=== PATIENT | male | born 1980 | race Caucasian/White ===

== ENCOUNTER 2017-11-10 16:06 | Emergency (ER) | payer SELFPAY ==
[2017-11-10 16:11] VITALS: BP 115/68; PULSE 62; RESP 16; TEMP 36.3; O2SAT 98
[2017-11-10] MEDS: Amoxicillin 875/Clav. 125 TAB PO (16:49)
--- NOTE | 2017-11-10 16:59 | ED.GENADUL ---
Disposition Clinical Impression: Infected dental caries Disposition: HOME Condition: Stable Instructions: Dental Caries (ED) Additional Instructions: Please take your antibiotic until gone and call the dentist on the list provided that offer sliding scale. This will offer you definitive care of your dental fractures and infection. Prescriptions: Amoxicillin/Potassium Clav [Augmentin 875-125 Tablet] 1 tab PO Q12H PRN #13 tablet PRN Reason: Medical Decision Making - Medical Decision Making Significant old dental fracture down to the pulp involving tooth #20 and 19 with surrounding erythema to the gumline. Concern for infected dental caries but there is no sign of pocket of abscess or fluctuance, no Raul's angina, no peritonsillar or retropharyngeal abscess, no signs of systemic illness and patient is afebrile and otherwise well-appearing. Given the patient was just placed upon penicillin recently with resolution but not returned patient placed upon Augmentin. Patient was given a list of dental providers offer sliding scale as he states he has no insurance. Patient stated only mild pain so he was encouraged to continue his ibuprofen and I do not feel dental block is needed at this time. After discussion of diagnosis and plan of care with patient patient agreed and stated no further needs, questions, or concerns at this time. History of Present Illness - General Chief complaint: DentalOral Stated complaint: INFECTED TOOTH Time Seen by Provider: 11/10/17 16:19 Source: patient, RN notes reviewed Mode of arrival: ambulatory Limitations: no limitations - History of Present Illness Initial comments: Patient reports history of broken teeth that have become infected in the past. He states that he was seen here in the emergency department a couple weeks ago and placed upon penicillin which helped his symptoms at that time. Then over the last 2 days he has noticed some slight increase in discomfort which is been mild but some swelling to his jaw. He is concern for return of infection. He states that he took his penicillin as prescribed and finished all the pills. Patient denies any difficulty breathing, swallowing, sore throat, fever or chills. Onset/Timin -: days(s) Location: mouth, left Severity scale (1-10): 2 Quality: aching Consistency: constant Improves with: none Worsens with: none Treatments Prior to Arrival: NSAID - Related Data Ibuprofen 400 mg PO PRN PRN 08/07/17 Amoxicillin/Potassium Clav [Augmentin 875-125 Tablet] 1 tab PO Q12H PRN #13 tablet 11/10/17 Allergies Allergy/AdvReac Type Severity Reaction Status Date / Time No Known Allergies Allergy Unverified 11/10/17 16:14 Review of Systems Constitutional: denies: chills, fever, malaise ENT: dental pain. denies: ear pain, throat pain, congestion Respiratory: denies: cough, shortness of breath, stridor, wheezing Cardiovascular: denies: chest pain Neurological: denies: headache Comment: All other systems reviewed and negative Past Medical History - Past Medical History Medical history: denies: diabetes dental decay, recurrent/chronic dental pain Surgical history: no surgical history Family history: no significant family history - Social History Smoking status: current everyday smoker Alcohol use: rarely Drug use: none General Exam - General Limitations: no limitations General appearance: alert, in no apparent distress - Eye Eye exam: Present: normal apperance - ENT ENT exam: Present: mucous membranes moist - Expanded ENT Exam No standard instances Mouth exam: Present: tongue normal. Absent: drooling, trismus, muffled voice, tongue elevation Teeth exam: Present: dental caries, fractured tooth # (19-20), gingival enlargement (Surrounding tooth #19 and 20 with no fluctuance noted) Throat exam: normal inspection. negative: tonsillar erythema, tonsillomegaly, tonsillar exudate, L peritonsillar mass - Neck Neck exam: Present: normal inspection, full ROM. Absent: tenderness, lymphadenopathy - Respiratory Respiratory exam: Absent: respiratory distress, stridor - Neurological Exam Neurological exam: Present: alert, oriented X3. Absent: altered - Skin Skin exam: Present: warm, dry, normal color Course Vital Signs - 24 hr 11/10/17 16:11 Temperature 36.3 C L Pulse 62 Respiratory 16 Rate Blood Pressure 115/68 Pulse Oximetry 98
== END 2017-11-10 17:05 | disposition home or self-care (01) ==
PROVIDERS: Emergency Provider Physician Assistant
DX: K02.9 Dental caries, unspecified (principal); K04.7 Periapical abscess without sinus
CPT/HCPCS: 99283

== ENCOUNTER 2018-09-10 23:46 | Emergency (ER) | payer SELFPAY ==
[2018-09-10 23:52] VITALS: BP 120/77; PULSE 89; RESP 17; TEMP 37.1; O2SAT 98
--- NOTE | 2018-09-10 23:55 | DI.CT_ITS ---
SYMPTOM/DIAGNOSIS: SOB PE CHEST CT: CT angiography was performed with multi slice acquisition and multi planar and 3D reconstruction. CT angiography of the chest was performed with intravenous infusion of 76 cc's of Omnipaque 350. Images obtained through the upper abdomen are unremarkable. There is no evidence of pulmonary embolic disease. There is no evidence of thoracic aortic dissection or aneurysm. No mediastinal or hilar adenopathy seen. Tracheobronchial tree appears intact. No pleural effusion or pulmonary consolidation. CONCLUSION: Normal CTA chest. No evidence of acute pulmonary embolus.
[2018-09-10 23:56] VITALS: RESP 18
--- NOTE | 2018-09-10 23:59 | ED.GENADUL_ITS ---
Discharge Plan Disposition Patient Disposition: HOME Condition: Good Discharge Details Chief Complaint: Chest Pain Clinical Impression: Shortness of breath, Light-headedness Primary Care Provider: None,None ED Provider: Will Lange Home Meds and New Rx's Prescriptions: No Action No Known Home Meds RF: 0 Discharge Instructions Instructions: Lightheadedness (ED) Additional Instructions: I placed you on our follow up list to get set up with a primary care provider if you have severe chest pain or worsening shortness of breath or new symptoms such as severe abdominal pain return to the emergency department for reevaluation Medical Decision Making 38 yo male who denies chronic medical problems though does not see a pcp, smoker, denies drinking or drug use, comes in with chief complaint of feeling lightheaded and short of breath. 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 Denies chest pain or pressure and never had loc. HE denies recent travel, fevers or cough. He appears anxious, has clear lungs on exam. His ecg is unremarkable, heart score is 1, will send troponin. His wells score is moderate given PE is just as likely diagnosis so will obtain cta. NO tearing back pain so doubt dissection. Is having lightheadedness with normal tele so doubt arrythmia. No neuro symptoms and NIH of 0 here with normal neuro exam so doubt cva or other neurological process. labs unremarkable and he remains hd stable. AWaiting vrad report but if negative will d/c and have him f/u with pcp within a week for shortness of breath. Do not feel additional troponin indicated as he now states he has had symptoms over 4 hours and low heart score Differential Diagnosis anxiety, pe, anemia, electrolyte abnormality Imaging Data Radiologic Study: Attestation: I personally reviewed and interpreted this imaging study as follows: Imaging: CT Scan My impression: no acute findings Radiologist's impression: IMPRESSION: No acute pulmonary embolus Lab Data Lab results reviewed: Yes I reviewed the patient's lab results. ECG Data Attestation: I personally reviewed and interpreted this ECG (s) as follows: Prior ECG tracings: not available for review Interpretation: sinus rhyth, rate of 79, pr 140, no acute st t wave ischemic findings HPI General Mode of arrival: ambulatory . Date/Time Provider Initiated Documentation: 09/10/18 23:46 . Limitations to Documentation: no limitations . Information obtained by: patient . History of Present Illness 38 year old M presents to the emergency department with the chief complaint of shortness of breath, described as moderate, Patient started experiencing this hour(s) (1) and it has been constant. No relieving factors improve symptom(s), No exacerbating factors reported . Patient notes no other symptoms.. Patient did receive the following treatments prior to arrival, none Related Data Home Medications Medication Instructions Recorded Confirmed Unknown [No Known Home Meds] 09/10/18 09/10/18 Allergies Allergy/AdvReac Type Severity Reaction Status Date / Time No Known Allergies Allergy Unverified 09/10/18 23:58 Review of Systems Review of Systems All systems reviewed & are unremarkable except as noted in HPI and below Constitutional Denies chills, Denies fever(s) and Denies weakness Cardiovascular Denies chest pain Respiratory Denies cough Gastrointestinal Denies abdominal pain, Denies nausea and Denies vomiting Musculoskeletal Denies joint swelling Integumentary/Breasts Denies rash Neurologic Denies weakness Psychiatric Denies depression PFSH Social History Smoking/Tobacco Use Status: Current every day Alcohol Intake: former Drug use: Occasionally Substance use type: marijuana Do you feel safe at home: Yes Do you feel safe in your relationship?: Yes Exam Const General: anxious Orientation: alert HENMT Head: normal to inspection Ears: external ears normal General nose exam: external nose normal Mouth: moist mucous membranes Eyes General: appearance normal, both eyes and all related structures Neck Neck: normal visual inspection Resp Effort & Inspection: normal respiratory effort and able to speak in complete sentences Cardio Rate: regular rate Skin General skin exam: no rashes or lesions noted Neuro General: alert and oriented x3 Extrem General: normal to inspection Psych Mental Status: mental status grossly normal
[2018-09-11] MEDS: LORazepam 2 MG/ML VIAL 0.5 MG IVP (00:06)
[2018-09-11] MEDS: Normal Saline 1,000 ML 1000 ML IV (00:07)
[2018-09-11] MEDS: Omnipaque 350 MG/ML 100 ML BTL IJ (00:15)
[2018-09-11 00:25] LABS: Abs Immature Grans 0.02 k/cumm (0.0-0.09); Absolute Basophil Count 0.03 k/cumm (0.0-0.2); Absolute Eosinophil Count 0.43 k/cumm (0.0-0.7); Absolute Lymphocyte Count 2.27 k/cumm (1.2-3.4); Absolute Monocyte Count 0.56 k/cumm (0.11-0.7); Absolute Neutrophil Count 6.53 k/cumm (1.2-6.7); Basophils % 0.3; Eosinophils % 4.4; HCT 47.7 % (40.0-50.0); HGB 16.3 g/dL (13.5-17.5); Immature Grans % 0.2; Lymphocytes % 23.1; Mean Corp. HGB Concentration 34.2 g/dL (32.0-36.0); Mean Corpuscular Hemoglobin 30.8 pg (27.0-33.0); Mean Corpuscular Volume 90.2 fL (80-95); Mean Platelet Volume 9.6 fL (8.0-11.0); Monocytes % 5.7; Neutrophils % 66.3; Platelet Count 212 x1000/uL (130-400); RBC 5.29 m/cumm (4.50-6.00); RBC Distribution Width 13.1 % (11.8-14.1); White Blood Cell Count 9.84 k/cumm (4.4-10.8)
[2018-09-11 00:40] LABS: INR 0.9 (0.9-1.1); Prothrombin Time 9.4 sec (9.3-11.0)
[2018-09-11 00:48] LABS: ALT 48 U/L (12-78); AST 19 U/L (15-37); Albumin 4.1 g/dL (3.4-5.0); Alkaline Phosphatase 85 U/L (46-116); Anion Gap 10.8 mmol/L (3-11); BUN 15 mg/dL (7-18); Bilirubin, Total 0.4 mg/dL (0.2-1.0); CO2 26.2 mmol/L (21.0-32.0); CREATININE 0.96 mg/dL (0.70-1.30); Calcium 9.6 mg/dL (8.5-10.1); Chloride 104 mmol/L (98-107); Glucose 112 mg/dL (70-100); Magnesium 1.9 mg/dL (1.8-2.4); NT-proBNP 19 pg/mL; Potassium 3.5 mmol/L (3.5-5.1); Sodium 141 mmol/L (136-145); Total Protein 7.6 g/dL (6.4-8.2); Troponin I < 0.02 ng/mL (0.00-0.06)
--- NOTE | 2018-09-11 01:33 | DI.VRAD_ITS ---
EXAM: CT Angiography Chest With Contrast EXAM DATE/TIME: 09/10/2018 11:53 PM CLINICAL HISTORY: 38 years old, male; Signs and symptoms; Shortness of breath and other: Tightness; Patient HX: SOB and tightness in chest TECHNIQUE: Imaging protocol: Axial computed tomographic angiography images of the chest with intravenous contrast using CT angiography protocol. Coronal and sagittal reformatted images were created and reviewed. 3D rendering: MIP reconstructed images were created and reviewed. Radiation optimization: All CT scans at this facility use at least one of these dose optimization techniques: automated exposure control; mA and/or kV adjustment per patient size (includes targeted exams where dose is matched to clinical indication); or iterative reconstruction. Contrast material: OMNIPAQUE 350; Contrast volume: 76 ml; Contrast route: IV RAC; COMPARISON: No relevant prior studies available. FINDINGS: Pulmonary arteries: No acute pulmonary embolus. Aorta: No aortic aneurysm. No aortic dissection. Lungs: Bibasilar subsegmental dependent atelectasis. No acute findings. Pleural space: Normal. No pneumothorax. No pleural effusion. Heart: No cardiomegaly. No pericardial effusion. Lymph nodes: Unremarkable. No enlarged lymph nodes. Bones/joints: Unremarkable. No acute fracture. Soft tissues: Unremarkable. IMPRESSION: No acute pulmonary embolus. Dictated and Authenticated by: Quinton Obregon MD. Ordering:CARL Solis MD
[2018-09-11 01:46] VITALS: BP 118/78; PULSE 62; RESP 16; O2SAT 98
[2018-09-11] MEDS: Normal Saline Flush 10 ML SYR IVP (01:49)
--- NOTE | 2018-09-12 08:20 | CMPROGNOTE_ITS ---
Care Management Progress Note 09/12-Dr. Lange requested assistance with establishing PCP and f/u in one week for SOB. ([employer] corrections sergeant). Referral faxed to [facility] this am.
--- NOTE | 2018-09-12 08:20 | PDOC.ERCMPRO ---
Care Management Progress Note 09/12-Dr. Lange requested assistance with establishing PCP and f/u in one week for SOB. ([employer] home sales service professional). Referral faxed to [facility] this am.
== END 2018-09-11 01:45 | disposition home or self-care (01) ==
LOC: ER 09-11 01:49
PROVIDERS: Emergency Provider Emergency Medicine
DX: R06.02 Shortness of breath (principal); R42 Dizziness and giddiness
CPT/HCPCS: 36415; 71275; 80053; 93005; 96360; 99285; 83735; 83880; 84484; 85025; 85610; 85730; 93010; J2060; J3490

== ENCOUNTER 2021-06-27 20:30 | Emergency (ER) | payer SELFPAY ==
[2021-06-27 20:34] VITALS: BP 125/96; PULSE 73; RESP 16; TEMP 36.3; O2SAT 100
--- NOTE | 2021-06-27 20:40 | ED.GENADUL_ITS ---
Discharge Plan Disposition Patient Disposition: HOME Condition: Good Discharge Details Clinical Impression: Pain, dental, Acute pulpitis Primary Care Provider: None,None ED Provider: Nestor De Jesus Home Meds and New Rx's Prescriptions: New amoxicillin-pot clavulanate 875-125 mg tablet 1 tab PO BID Qty: 20 0RF Discharge Instructions Instructions: Toothache (ED) Additional Instructions: Please take 800 mg of ibuprofen every 6 hours and 1000 mg of Tylenol every 6 hours to help with the inflammation and pain. These are the maximum doses. Please take the antibiotic as directed to help with the infection in your tooth. Please use the dental list that we have provided to contact the dentist for prompt follow-up and evaluation for tooth removal. If you notice any worsening of your symptoms, or any new symptoms such as difficulty swallowing, difficulty breathing, vomiting, diarrhea, fever, chills, shortness of breath, chest pain, numbness, weakness, or fainting , please return immediately to the emergency department for reevaluation. Please follow up with your primary care provider as soon as possible for reassessment and reevaluation. As always, it was a pleasure participating in your medical care today. Medical Decision Making 41-year-old male who presents today for dental pain. Patient states that for the last 2 to 3 days he has had pain in his upper and lower left posterior molars. He denies fever or chills. He admits the pain but no difficulty swallowing or controlling his secretions. He has not seen a dentist for quite some time. He denies any other complaints at this time. No other modifying factors. Physical exam demonstrates poor dentition, chronic infection, but no evidence of periapical abscess or Ludewig's angina. Vital signs are stable. Patient has refused dental block at this time. We will give IM Toradol, and recommend Tylenol and Motrin for home. Will give prescription of Augmentin, and the first doses here. Will give dental sheet for contact of local dentist. Discussed red flags which to return. I have extensively reviewed the treatment plan and discharge instructions with the patient. I have addressed all patient concerns at this time. The patient was made aware of what symptoms to monitor for that would warrant a return to the emergency department. Discussed the plan with the patient, they demonstrate verbal understanding and agreement with our assessment and plan at this time. The documentation in this chart was dictated using [employer] dictation software. Please excuse any dictation errors. HPI General Date/Time Provider Initiated Documentation: 06/27/21 20:31 . HPI Narrative: 41-year-old male who presents today for dental pain. Patient states that for the last 2 to 3 days he has had pain in his upper and lower left posterior molars. He denies fever or chills. He admits the pain but no difficulty swallowing or controlling his secretions. He has not seen a dentist for quite some time. He denies any other complaints at this time. No other modifying factors. Related Data Home Medications Medication Instructions Recorded Confirmed amoxicillin 875 mg-potassium 1 tab PO BID #20 tab 06/27/21 clavulanate 125 mg tablet Previous Rx's Medication Instructions Recorded amoxicillin 875 mg-potassium 1 tab PO BID #20 tab 06/27/21 clavulanate 125 mg tablet Allergies Allergy/AdvReac Type Severity Reaction Status Date / Time bee venom protein (honey bee) AdvReac Intermediate dizziness Unverified 06/27/21 20:42 General YOLANDA: 3 Review of Systems All systems reviewed & are unremarkable except as noted in HPI and below PFSH All Active Problems Pain, dental (Acute) Acute pulpitis (Acute) Social History Smoking/Tobacco Use Status: Current every day Smoking risk assessment performed?: Yes Alcohol Intake: former Drug use: Occasionally Substance use type: marijuana Do you feel safe at home: Yes Do you feel safe in your relationship?: Yes Exam Narrative Exam Narrative: 1.Const: Well-nourished, Well-developed, appearing stated age 2.Eyes: PERRL, no conjunctival injection, and symmetrical lids. 3.ENT: Atraumatic external nose and ears. Moist MM. Neck: Symmetric, trachea midline, No thyromegaly. Poor dentition throughout, broken and diseased teeth in the upper and lower left posterior molars. No evidence of periapical abscess, swelling, mass or Ludewig's angina. 4.CVS: +S1/S2, No murmurs or gallops. Peripheral pulses 2+ and equal in all extremities. Brisk capillary refill in all extremities. 5.RESP: Unlabored respiratory effort. Clear to auscultation bilaterally. No wheezes rales or rhonchi 6.GI: Soft, Nontender/Nondistended, No hepatosplenomegaly. No guarding or rebound. 7.MSK: Normocephalic/Atraumatic, Extremities w/o deformity or ttp No cyanosis or clubbing, Normal movement of all extremities 8.Skin: Warm, Dry. No rashes or lesions. 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 Sensation grossly intact, no focal neurologic deficits. 10.Psych: (AAO) x3. Appropriate mood and affect
[2021-06-27] MEDS: Amox. 875/Clav. 125, 2 TABS/BTL 1 TAB PO (20:46)
[2021-06-27] MEDS: Ketorolac 30 MG/ML VIAL IM (20:47)
== END 2021-06-27 21:09 | disposition home or self-care (01) ==
PROVIDERS: Emergency Provider Student in an Organized Health Care Education/Training Program
DX: K08.89 Other specified disorders of teeth and supporting structures (principal); K04.01 Reversible pulpitis
CPT/HCPCS: 96372; 99284; 99283; J1885

== ENCOUNTER 2021-10-14 22:01 | Emergency (ER) | payer SELFPAY ==
[2021-10-14 22:09] VITALS: BP 142/86; PULSE 82; RESP 14; TEMP 37.1; O2SAT 100
--- NOTE | 2021-10-14 22:19 | ED.GENADUL_ITS ---
Discharge Plan Disposition Patient Disposition: HOME Condition: Stable Discharge Details Clinical Impression: Pain, dental Primary Care Provider: None,None ED Provider: Will Lange Home Meds and New Rx's Prescriptions: New amoxicillin-pot clavulanate 875-125 mg tablet 1 tab PO BID Qty: 14 0RF Discontinued amoxicillin-pot clavulanate 875-125 mg tablet 1 tab PO BID Qty: 20 0RF Discharge Instructions Instructions: Toothache (ED) Additional Instructions: Follow up with a dentist as soon as you are able to if you feel more ill, have fevers or difficulty swallowing liquids return to the emergency department you can take 800mg ibuprofen every 8 hours as needed Medical Decision Making 41 yo male comes in with complaints of left upper posterior molar pain for several days. Denies fevers or chills, no difficulty breathing or swallowing. HAs had multiple dental issues in the past last being in June where he was seen in the ED and hasn't followup with dentist. He arrives stable and appears well breathing and swallowing normally. He has numerous eroded teeth and pain with percussion to the left upper posterior molar with no visible abscess. normal posterior pharynx and midline uvula, no submandibular swelling and no restricted neck movements, no findings to suggest ludwigs. Will place on augmentin and discussed this will likely keep happening unless he sees a dentist. Return precautions given Differential Diagnosis Differential Diagnosis: pulpitis, caries, abscess HPI General Mode of arrival: ambulatory . Date/Time Provider Initiated Documentation: 10/14/21 22:13 . Limitations to Documentation: no limitations . Information obtained by: patient . History of Present Illness 41 year old M presents to the emergency department with the chief complaint of dental pain, described as moderate, Quality is described as aching, Patient started experiencing this day(s) (3) and it has been constant. No relieving factors improve symptom(s), No exacerbating factors reported . Patient notes no other symptoms.. Patient did receive the following treatments prior to arrival, none Related Data Home Medications Medication Instructions Recorded Confirmed amoxicillin 875 mg-potassium 1 tab PO BID #14 tabs 10/14/21 clavulanate 125 mg tablet Previous Rx's Medication Instructions Recorded amoxicillin 875 mg-potassium 1 tab PO BID #14 tabs 10/14/21 clavulanate 125 mg tablet Allergies Allergy/AdvReac Type Severity Reaction Status Date / Time bee venom protein (honey bee) AdvReac Intermediate dizziness Unverified 10/14/21 22:12 General Stated Complaint: DentalOral YOLANDA: 4 Review of Systems All systems reviewed & are unremarkable except as noted in HPI and below Constitutional Constitutional: Denies chills, Denies fever(s) and Denies weakness ENT Ears, Nose, Mouth, and Throat: Denies change in voice Cardiovascular Cardiovascular: Denies chest pain and Denies dyspnea Respiratory Respiratory: Denies cough and Denies dyspnea Gastrointestinal Gastrointestinal: Denies abdominal pain, Denies nausea and Denies vomiting Integumentary/Breasts Skin/Breast: Denies rash Neurologic Neurologic: Denies weakness PFSH All Active Problems (Updated 10/14/21 @ 22:20 by Will Lange MD) Pain, dental (Acute) Social History Smoking/Tobacco Use Status: Current every day Smoking risk assessment performed?: Yes Alcohol Intake: former Drug use: Occasionally Substance use type: marijuana Do you feel safe at home: Yes Do you feel safe in your relationship?: Yes Exam Const General: no acute distress Orientation: alert HENMT Head: normal to inspection Ears: external ears normal General nose exam: external nose normal Mouth: moist mucous membranes Eyes General: appearance normal, both eyes and all related structures Neck Neck: normal visual inspection Resp Effort & Inspection: normal respiratory effort and able to speak in complete sentences Cardio Rate: regular rate Skin General skin exam: no rashes or lesions noted Neuro General: patient alert and patient oriented x3 Extrem General: normal to inspection Psych Mental Status: mental status grossly normal Course Vital Signs Vital signs: Vital Signs Temperature 37.1 C 10/14/21 22:09 Pulse 82 10/14/21 22:09 Respiratory Rate 14 10/14/21 22:09 Blood Pressure 142/86 H 10/14/21 22:09 Pulse Oximetry 100 10/14/21 22:09 Temperature 37.1 C 10/14/21 22:09 Temperature Source Skin 10/14/21 22:09 Pulse 82 10/14/21 22:09 Respiratory Rate 14 10/14/21 22:09 Respiratory Effort Non-Labored 10/14/21 22:13 Blood Pressure 142/86 H 10/14/21 22:09 Blood Pressure Position Sitting 10/14/21 22:09 Pulse Oximetry 100 10/14/21 22:09 Oxygen Delivery Method Room Air 10/14/21 22:09 Oxygen Flow Rate 0 10/14/21 22:09 Pain Level 5 10/14/21 22:13
[2021-10-14 22:30] VITALS: BP 142/86; PULSE 82; RESP 14; TEMP 37.1; O2SAT 100
[2021-10-14] MEDS: Amoxicillin 875/Clav. 125 TAB PO (22:30)
== END 2021-10-14 22:36 | disposition home or self-care (01) ==
PROVIDERS: Emergency Provider Emergency Medicine
DX: K08.89 Other specified disorders of teeth and supporting structures (principal)
CPT/HCPCS: 99283

== ENCOUNTER 2022-09-18 06:04 | Emergency (ER) | payer SELFPAY ==
[2022-09-18 06:07] VITALS: BP 138/87; PULSE 78; RESP 16; TEMP 36.8; O2SAT 98
--- NOTE | 2022-09-18 06:13 | ED.GENADUL_ITS ---
Discharge Plan Disposition Patient Disposition: Home Condition: Good Discharge Details Clinical Impression: Dental infection Primary Care Provider: None,None ED Provider: Nestor De Jesus Home Meds and New Rx's Prescriptions: New amoxicillin-pot clavulanate 875-125 mg tablet 1 tab PO BID Qty: 20 0RF Discharge Instructions Instructions: Dental Abscess (ED) Additional Instructions: Please take 800 mg of ibuprofen every 6 hours and 1000 mg of Tylenol every 6 hours to help with the inflammation and pain. These are the maximum doses. Please take the antibiotic as directed to help with the infection in your tooth. Please use the dental list that we have provided to contact the dentist for prompt follow-up and evaluation for tooth removal. If you notice any worsening of your symptoms, or any new symptoms such as difficulty swallowing, difficulty breathing, vomiting, diarrhea, fever, chills, shortness of breath, chest pain, numbness, weakness, or fainting , please return immediately to the emergency department for reevaluation. Please follow up with your primary care provider as soon as possible for reassessment and reevaluation. As always, it was a pleasure participating in your medical care today. Medical Decision Making This is a 42-year-old male with a past medical history of dental caries who presents for left upper posterior dental pain. Patient had his wisdom tooth removed years ago but there is always a small fragment that was left. It has now been bothering him for the last 2 weeks. He denies fever or chills. He has taken NSAIDs with only minimal improvement. He does see [facility] and will be following up with them. He denies any difficulty swallowing or drinking. No other complaints at this time. Exam demonstrates poor dentition throughout, and a small area of decayed teeth in the posterior left upper aspect where the patient's pain is. No evidence of periapical abscess or Ludewig's angina. Patient has refused dental block. Will recommend NSAIDs. We will give Augmentin for treatment. Discussed red flags for which to return. I have extensively reviewed the treatment plan and discharge instructions with the patient. I have addressed all patient concerns at this time. The patient was made aware of what symptoms to monitor for that would warrant a return to the emergency department. Discussed the plan with the patient, they demonstrate verbal understanding and agreement with our assessment and plan at this time. The documentation in this chart was dictated using [employer] dictation software. Please excuse any dictation errors. HPI General Date/Time Provider Initiated Documentation: 09/18/22 06:07 . HPI Narrative: This is a 42-year-old male with a past medical history of dental caries who presents for left upper posterior dental pain. Patient had his wisdom tooth removed years ago but there is always a small fragment that was left. It has now been bothering him for the last 2 weeks. He denies fever or chills. He has taken NSAIDs with only minimal improvement. He does see [facility] and will be following up with them. He denies any difficulty swallowing or drinking. No other complaints at this time. Related Data Home Medications Medication Instructions Recorded Confirmed amoxicillin 875 mg-potassium 1 tab PO BID #20 tabs 09/18/22 clavulanate 125 mg tablet Previous Rx's Medication Instructions Recorded amoxicillin 875 mg-potassium 1 tab PO BID #20 tabs 09/18/22 clavulanate 125 mg tablet Allergies Allergy/AdvReac Type Severity Reaction Status Date / Time bee venom protein (honey bee) AdvReac Intermediate dizziness Unverified 09/18/22 06:11 General Stated Complaint: DentalOral YOLANDA: 4 Review of Systems All systems reviewed & are unremarkable except as noted in HPI and below PFSH All Active Problems Dental infection (Acute) Social History Smoking/Tobacco Use Status: Current every day Smoking risk assessment performed?: Yes Alcohol Intake: former Drug use: Occasionally Substance use type: marijuana Do you feel safe at home: Yes Do you feel safe in your relationship?: Yes Exam Narrative Exam Narrative: 1.Const: Well-nourished, Well-developed, appearing stated age 2.Eyes: PERRL, no conjunctival injection, and symmetrical lids. 3.ENT: Atraumatic external nose and ears. Moist MM. Neck: Symmetric, trachea midline, No thyromegaly. Notable poor dentition throughout. Small area of decayed teeth in the posterior left upper aspect. No periapical abscess. No evidence of Ludewig's angina. 4.CVS: +S1/S2, No murmurs or gallops. Peripheral pulses 2+ and equal in all extremities. Brisk capillary refill in all extremities. 5.RESP: Unlabored respiratory effort. Clear to auscultation bilaterally. No wheezes rales or rhonchi 6.GI: Soft, Nontender/Nondistended, No hepatosplenomegaly. No guarding or rebound. 7.MSK: Normocephalic/Atraumatic, Extremities w/o deformity or ttp No cyanosis or clubbing, Normal movement of all extremities 8.Skin: Warm, Dry. No rashes or lesions. 9.Neuro: insole buffer II-XII grossly intact. Sensation grossly intact, no focal neurologic deficits. 10.Psych: (AAO) x3. Appropriate mood and affect Course Vital Signs Vital signs: Vital Signs Temperature 36.8 C 09/18/22 06:07 Pulse 78 09/18/22 06:07 Respiratory Rate 16 09/18/22 06:07 Blood Pressure 138/87 09/18/22 06:07 Pulse Oximetry 98 09/18/22 06:07 Temperature 36.8 C 09/18/22 06:07 Temperature Source Temporal Artery Scan 09/18/22 06:07 Pulse 78 09/18/22 06:07 Respiratory Rate 16 09/18/22 06:07 Respiratory Effort Normal 09/18/22 06:07 Blood Pressure 138/87 09/18/22 06:07 Blood Pressure Position Sitting 09/18/22 06:07 Pulse Oximetry 98 09/18/22 06:07 Oxygen Delivery Method Room Air 09/18/22 06:07 Oxygen Flow Rate 0 09/18/22 06:07 Pain Level 5 09/18/22 06:07
[2022-09-18] MEDS: Amox. 875/Clav. 125, 2 TABS/BTL 1 TAB PO (06:19)
== END 2022-09-18 06:19 | disposition home or self-care (01) ==
PROVIDERS: Emergency Provider Student in an Organized Health Care Education/Training Program
DX: K08.89 Other specified disorders of teeth and supporting structures (principal)
CPT/HCPCS: 99283; 99284

== ENCOUNTER 2023-05-07 05:50 | Emergency (ER) | payer SELFPAY ==
[2023-05-07 05:54] VITALS: BP 156/90; PULSE 83; RESP 19; TEMP 36.8; O2SAT 98
--- NOTE | 2023-05-07 05:54 | W.ED.GENAD ---
HPI General Mode of arrival: ambulatory. Date/Time Provider Initiated Documentation: 05/07/23 05:54. Limitations to Documentation: no limitations. Information obtained by: patient. HPI Narrative: . Patient is a 43-year-old male who presents with left lower jaw pain radiating down his neck. He cannot recall the last time he saw dentist. He has had his wisdom teeth removed. He does note he has a cavity in several of his teeth but does not have health insurance and tells me he cannot afford to see a dentist. He has been seen in the emergency department before for this pain. The pain is constant 3 out of 10 in severity characterized as throbbing. He denies any foul discharge in his mouth. He denies any fevers or chills. He denies any change in his voice. He denies any intraoral swelling. He denies any shortness of breath or fever. He is a smoker and has been. At a local supermarket but does not have dental insurance. The pain is aggravated by chewing. He has no history of immune compromised Related Data Home Medications Medication Instructions Recorded Confirmed penicillin V potassium 500 mg 500 mg PO QID #40 tabs 05/07/23 tablet Previous Rx's Medication Instructions Recorded penicillin V potassium 500 mg 500 mg PO QID #40 tabs 05/07/23 tablet Allergies Allergy/AdvReac Type Severity Reaction Status Date / Time bee venom protein (honey bee) AdvReac Intermediate dizziness Unverified 05/07/23 05:56 General Stated Complaint: DentalOral YOLANDA: 4 Review of Systems Narrative: see hpi Exam Narrative Exam Narrative: The patient is a well-developed well-nourished male in no acute distress. He is mildly hypertensive with a blood pressure of 156/90. He does appear older than his stated age and smells of tobacco. He is not tachycardic tachypneic or febrile. His room air O2 sat is normal at 98%. His skin is warm and dry normal for ethnicity. HEENT exam normocephalic atraumatic pupils are equal round react light and accommodation extraocular muscles are intact. There is no obvious facial swelling he has normal phonation. His oropharynx reveals diffuse dental disease and gingivitis. Tooth #19 has a large cavity and teeth numbers 20 and 21 have been eroded down to the gumline. There is no evidence of buccal cellulitis. There is no swelling under the tongue or evidence of Kellee's angina. There is no fluctuance or drainable abscess. He is handling secretions and has normal phonation. His neck reveals shotty submandibular adenopathy. There is no swelling of the left side of his neck. He has full range of motion of his neck. His neurologic exam is grossly normal cranial nerves II through XII appear intact he has normal speech and gait. Course The patient was advised to at foods that contain probiotics such as kombucha or [place] yogurt while on antibiotics. Alternatively they were advised to ask their pharmacist for an [id number]-[id number] probiotic to take while taking antibiotics. The patient/family/caregiver voiced agreement and understanding of the discharge instructions and plan for outpatient follow-up. There were advised to return to the Emergency Department for any new or worrisome symptoms or concerns. Medical Decision Making This is a 43-year-old smoker who is not. But does not have insurance and cannot recall the last time he saw dentist. Who presents with left lower jaw pain and obvious caries but no fluctuant abscess, buccal cellulitis or evidence of Raul's angina. He has an intact immune system. There is a smoker in the is evidence of tobacco stains on his teeth. His airway is patent. He is not febrile or toxic. My plan is to discharge him with penicillin 500 mg every 6 hours. I will advise him to buy a probiotic and to rinse with dilute hydrogen peroxide and warm Water. I advised him to see a dentist and return for any difficulty breathing talking or swallowing or any new or worrisome symptoms. Differential Diagnosis Differential Diagnosis: Dental pain, dental caries, Medical Records Medical records reviewed: Yes I reviewed the patient's medical records. Quality:[facility] Health Related Social Needs: No Data to Display Health related social needs details: No health insurance. The patient is employed. PFSH All Active Problems Dental caries (Acute) Dental caries on smooth surface penetrating into pulp (Acute) Tobacco dependence (Acute) Social History Smoking/Tobacco Use Status: Current every day Smoking risk assessment performed?: Yes Alcohol Intake: former Drug use: Occasionally Substance use type: marijuana Do you feel safe at home: Yes Do you feel safe in your relationship?: Yes Discharge Plan Disposition Patient Disposition: Home Discharge Details Clinical Impression: Tobacco dependence, Dental caries on smooth surface penetrating into pulp, Dental caries Primary Care Provider: [facility],Local ED Provider: Stacy Cancino Home Meds and New Rx's Prescriptions: New penicillin V potassium 500 mg tablet 500 mg PO QID Qty: 40 0RF Discharge Instructions Instructions: Dental Caries (ED) Additional Instructions: 1. Alternate 1000mg of acetaminophen (Tylenol) every 3 hours with 400-600mg of ibuprofen (Motrin/Advil) as needed for pain or fever. Do not take more than 4000mg in 24 hours. Do not take acetaminophen if you have a history of liver disease. Do not take ibuprofen if you have a history of gastrointestinal bleeding or a history of kidney disease. 2. Start penicillin 500 mg every 6 hours for 10 days. While on antibiotics, we recommend you take probiotics. Probiotics help to replace the good bacteria that are killed when taking antibiotics and may decrease the gastrointestinal side effects, such as diarrhea, that sometimes occur while on antibiotics. Probiotics can be found in some foods such as kombucha and [place] yogurt. Alternatively, you may ask your pharmacist to recommend an kuwa-qea-wgmmiui probiotic to take along with your prescription for antibiotics. 3. Follow-up with a dentist of your choice. Return here for any new or worrisome symptoms such as increasing pain, difficulty breathing, talking or swallowing, change in voice or any concerns. Rinse with dilute hydrogen peroxide and warm tap water and 1-1 dilution. Discharge Data Discharge Physician: Stacy Cancino
[2023-05-07] MEDS: Penicillin V POTASSIUM 500 MG TAB PO (06:20)
== END 2023-05-07 06:21 | disposition home or self-care (01) ==
PROVIDERS: Emergency Provider Emergency Medicine Emergency Medical Services
DX: K08.89 Other specified disorders of teeth and supporting structures (principal); Z72.0 Tobacco use; K02.9 Dental caries, unspecified
CPT/HCPCS: 99282; 99283

== ENCOUNTER 2023-12-05 23:58 | Emergency (ER) | payer SELFPAY ==
[2023-12-06 00:03] VITALS: BP 133/105; PULSE 93; RESP 18; O2SAT 97
--- NOTE | 2023-12-06 00:15 | ED.GENADUL_ITS ---
Discharge Plan Disposition Patient Disposition: Home Condition: Good Discharge Details Clinical Impression: Finger laceration ED Provider: Ariel Haro Discharge Instructions Instructions: Laceration Repair With Stitches ED Additional Instructions: You were seen for a laceration to your finger that with irrigated and cleaned, closed with stitches. Keep the wound clean and dry, covered for the next 3 to 4 days. You may shower but do not soak your right hand. Sutures should be removed in 7 to 10 days. Return to ED for any signs of infection which will include increasing pain, redness, swelling, drainage. HPI General Mode of arrival: ambulatory . Date/Time Provider Initiated Documentation: 12/06/23 00:15 . Limitations to Documentation: no limitations . Information obtained by: patient and RN notes reviewed . HPI Narrative: Patient is a [id number] male presents to ED with laceration to his right index finger. Patient tripped and fell while carrying a glass jar. The jar broke and he sustained a laceration to the pad of his index finger. He is not sure whether he has glass still in his finger or not. He denies any injury elsewhere. Bleeding has been difficult to control. Denies any numbness to the finger and is able to flex and extend without difficulty. Patient reports tetanus is up-to-date within the last 5 years. Related Data Allergies Allergy/AdvReac Type Severity Reaction Status Date / Time bee venom protein (honey bee) AdvReac Intermediate dizziness Unverified 12/06/23 00:07 General Stated Complaint: Laceration YOLANDA: 3 Review of Systems Narrative: Per HPI Exam Narrative Exam Narrative: Const: WDWN male in NAD. VS per triage. HEENT: NC/AT. Normal facial exam. Neck: Supple. Trachea midline. Lungs: Normal respiratory effort. Neuro: A+O x 3. Normal speech, mentation, gait. Cranial nerves II - XII grossly intact. No gross motor or sensory deficit. Ext: No C/C/E. Right hand with flap laceration involving the pad and extending proximal. Sensation is intact. Full flexion against resistance without pain or tenderness. Course Vital Signs Vital signs: Vital Signs Pulse 93 H 12/06/23 00:03 Respiratory Rate 18 12/06/23 00:03 Blood Pressure 133/105 H 12/06/23 00:03 Pulse Oximetry 97 12/06/23 00:03 Pulse 93 H 12/06/23 00:03 Respiratory Rate 18 12/06/23 00:03 Blood Pressure 133/105 H 12/06/23 00:03 Blood Pressure Position Sitting 12/06/23 00:03 Pulse Oximetry 97 12/06/23 00:03 Oxygen Delivery Method Room Air 12/06/23 00:03 Oxygen Flow Rate 0 12/06/23 00:03 Procedures Laceration Laceration 1: Site: hand Side (If applicable): right Size (cm): 1 Description: flap Depth: simple, single layer Local anesthetic: Lidocaine 1% Amount of anesthesia used (mL): 0.5 Pre-repair: wound explored and irrigated extensively Skin layer closed with: nylon Size (cm): 5-0 Number of sutures: 4 Technique: simple, interrupted Nerve Block Nerve Block 1: Time out performed: Yes Local Anesthetic: Lidocaine 1% Amount of anesthesia used (mL): 3 Side: right Nerve Blocks: digital Procedure Successful: Yes Patient Tolerated Procedure: well Complications: none Medical Decision Making Patient presenting to ED with right index finger laceration sustained from a piece of glass. Patient reports pulling the glass out. Digital block was performed. Finger tourniquet applied and wound irrigated out. No glass seen or felt. Tourniquet removed. Small amount of local introduced into the laceration area due to some continued pain despite digital block. Wound further irrigated out. Closed with 5-0 sutures with good approximation of skin. Discussed wound care and return precautions. Sutures out in 7 to 10 days. [facility] All Active Problems (Updated 12/06/23 @ 01:24 by Ariel aHro MD) Finger laceration (Acute) Social History Smoking/Tobacco Use Status: Current every day Smoking risk assessment performed?: Yes Alcohol Intake: former Drug use: Occasionally Substance use type: marijuana Do you feel safe at home: Yes Do you feel safe in your relationship?: Yes
[2023-12-06] MEDS: Lidocaine 1% Multi-Dose 50 ML VIAL ×2 (00:40→01:29)
== END 2023-12-06 01:30 | disposition home or self-care (01) ==
LOC: ER 12-06 01:43
PROVIDERS: Emergency Provider Emergency Medicine
DX: S61.210A Laceration without foreign body of right index finger without damage to nail, initial encounter (principal); F17.200 Nicotine dependence, unspecified, uncomplicated; W01.110A Fall on same level from slipping, tripping and stumbling with subsequent striking against sharp glass, initial encounter; Y93.01 Activity, walking, marching and hiking; Y92.018 Other place in single-family (private) house as the place of occurrence of the external cause
CPT/HCPCS: 12001; 99283

== ENCOUNTER 2024-09-28 21:54 | Emergency (ER) | payer SELFPAY ==
[2024-09-28 21:57] VITALS: BP 116/81; PULSE 83; RESP 16; TEMP 36.5; O2SAT 98
[2024-09-28 22:02] VITALS: BP 120/89; PULSE 74; TEMP 36.8; O2SAT 98
--- NOTE | 2024-09-28 22:10 | ED.GENADUL_ITS ---
Discharge Plan Disposition Patient Disposition: Home Condition: Stable Discharge Details Clinical Impression: Infection of tooth Primary Care Provider: None,None ED Provider: Sharla Mclean Home Meds and New Rx's Prescriptions: New amoxicillin-pot clavulanate 875-125 mg tablet 1 tab PO BID 10 Days Qty: 20 0RF Discharge Instructions Instructions: Dental Pain ED Additional Instructions: PLease see a dentist. Practice good oral hygiene and brush teeth twice daily. Please rinse out your mouth with water or mouthwash after eating or drinking anything. Use the HurriCaine gel up to 3 times daily as needed for pain. Please take the antibiotic with yogurt or a probiotic twice daily for the next 10 days. Follow up with primary care provider in 3-5 days. Return to ED sooner if any worsening facial swelling, fever chills unable to open your mouth or concerns. Please take Tylenol or Ibuprofen with food every 4-6 hours as needed for pain and swelling. HPI General Mode of arrival: ambulatory . Date/Time Provider Initiated Documentation: 09/28/24 22:02 . Limitations to Documentation: no limitations . Information obtained by: patient, RN notes reviewed and old records reviewed . HPI Narrative: 44-year-old male presents with a chief complaint of lower molar pain. He does note that he has had abscesses in the past and has poor dentition. Denies any fever or chills. Is speaking in full sentences. Is requesting antibiotics does not have a dentist. Related Data Home Medications ?Medication ?Instructions ?Recorded ?Confirmed amoxicillin 875 mg-potassium 1 tab PO BID 10 days #20 tabs 09/28/24 clavulanate 125 mg tablet Previous Rx's ?Medication ?Instructions ?Recorded amoxicillin 875 mg-potassium 1 tab PO BID 10 days #20 tabs 09/28/24 clavulanate 125 mg tablet Allergies Allergy/AdvReac Type Severity Reaction Status Date / Time bee venom protein (honey bee) AdvReac Intermediate dizziness Verified 09/28/24 22:00 General Stated Complaint: DentalOral YOLANDA: 4 Exam HENMT Teeth image: 2 1. Dental carry eroded down to the gumline, with surrounding gingival edema and erythema no fluctuant abscess palpated no drainage noted. 2. Dental carry eroded down to the gumline with surrounding gingival edema and erythema. Course Vital Signs Vital signs: Vital Signs Temperature 36.5 C 09/28/24 21:57 Pulse 83 09/28/24 21:57 Respiratory Rate 16 09/28/24 21:57 Blood Pressure 116/81 09/28/24 21:57 Pulse Oximetry 98 09/28/24 21:57 Temperature 36.8 C 09/28/24 22:02 Pulse 74 09/28/24 22:02 Respiratory Rate 16 09/28/24 21:57 Blood Pressure 120/89 09/28/24 22:02 Pulse Oximetry 98 09/28/24 22:02 Oxygen Delivery Method Room Air 09/28/24 21:57 Oxygen Flow Rate 0 09/28/24 21:57 Pain Level 0 09/28/24 22:02 Medical Decision Making 44-year-old male presents with a chief complaint of lower molar pain. He does note that he has had abscesses in the past and has poor dentition. Denies any fever or chills. Is speaking in full sentences. Is requesting antibiotics does not have a dentist. #19 and [address] down to the gumline, gingival edema and erythema no area of fluctuance or palpable abscess noted. Will give HurriCaine gel and Augmentin and dental resources. Patient given 2 tablets of Augmentin here in the department first dose administered here in 10 days of Augmentin with dental resources Discussed strict return instructions and home care. This text was generated using [employer] dictation system, please disregard any oddities of phrase or misspellings. Quality:[facility] Health Related Social Needs: 2 Health related social needs details No health insuranc e. The patient is employed. PFSH All Active Problems (Updated 09/28/24 @ 22:12 by Sharla Mclean NP) Infection of tooth (Acute) Social History Smoking/Tobacco Use Status: Current every day Smoking risk assessment performed?: Yes Alcohol Intake: former Drug use: Occasionally Substance use type: marijuana Do you feel safe at home: Yes Do you feel safe in your relationship?: Yes
[2024-09-28] MEDS: Amox. 875/Clav. 125, 2 TABS/BTL 1 TAB PO (22:40)
[2024-09-28] MEDS: Amoxicillin 875/Clav. 125 TAB PO (22:40)
[2024-09-28] MEDS: Benzocaine 20% Gel 30 GM JAR MM (22:40)
== END 2024-09-28 22:40 | disposition home or self-care (01) ==
LOC: ER 22:39
PROVIDERS: Emergency Provider Registered Nurse Emergency
DX: K04.7 Periapical abscess without sinus (principal); F17.200 Nicotine dependence, unspecified, uncomplicated
CPT/HCPCS: 99283